=== PATIENT | female | born 1945 | race Caucasian/White ===

== ENCOUNTER 2018-12-14 09:51 | Day surgery (SDC) | payer MEDICARE, OTHER ==
--- NOTE | 2018-12-14 07:46 | History and Physical - [place] ---
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 In 2011 a Medtronic spinal cord stimulator was positioned, over the years the system seemed to help, but eventually the system failed. Multiple attempts at regarding the system functionality were unsuccessful. Computer assessment showed multiple electrodes failure as well as generator failure. She was given the option to replace or removed and she opted to remove and replace with a [employer] WaveWrNovint technology which represents greater numbers of electrodes, different generator, and more programmability. PAST MEDICAL HISTORY: Chronic pulmonary disease. MEDICATIONS ON ADMISSION: List to be provided. ALLERGIES: CODEINE. FAMILY/PSYCHOSOCIAL HISTORY: Social history - Noncontributory. Family history - Noncontributory. SYSTEMS REVIEW: The patient is appropriate in no acute distress. The remainder of the systems review is positive for breathing difficulties, reflux, and degenerative arthritis. PHYSICAL EXAMINATION: Height is 5'3", weight is 190. No vital signs. HEENT: Within normal limits. LUNGS: Clear. HEART: Rapid and regular. ABDOMEN: Nontender. MUSCULOSKELETAL: Examination of the musculoskeletal system shows the incisional line for the leads approximating T12-L1. Generator noted at the right posterior3 gluteal margins. All of the incisions are intact. Underlying pain pattern is radicular into both lower extremities. Somewhat more prominent to the right across the frontal and back surface with motor and sensory abnormalities. NEUROLOGIC: Cranial nerves are intact. IMPRESSION: 1. POST LUMBAR LAMINECTOMY SYNDROME, ICD-10 CODE M96.1 WITH RADICULOPATHY, ICD- 10 CODE M54.16 AND M54.17. 2. IMPLANTED SPINAL CORD STIMULATOR AND INTERNAL GENERATOR NONFUNCTIONAL. PLAN: The patient is here for removal of the current system and replace with a new system. The procedure will be considered outpatient, although an overnight stay will be evaluated. JOB NUMBER: [id number] [facility]
[~2018-12-14 09:51] MED LIST: ACETAMINOPHEN 1,000 MG/100 ML BTL IVPB ONE; FAMOTIDINE 20MG TABLET PO ONE; METOCLOPRAMIDE 10 MG TABLET PO ONE; VANCOMYCIN HCL 1,000 MG in DEXTROSE 5 % IN WATER 250 ML IVPB ONE
[2018-12-14] MEDS ORDERED: MIDAZOLAM HCL 2MG/2ML VIAL IV ONE (09:52)
[2018-12-14] MEDS ORDERED: LIDOCAINE 2% MDV (20MG/ML) 20ML VIAL IV ONE (09:52)
[2018-12-14] MEDS ORDERED: FENTANYL PF 100MCG/2ML VIAL IV ONE (09:52)
[2018-12-14] MEDS ORDERED: ONDANSETRON HCL IV 4 MG/2 ML VIAL IVP ONE (09:52)
[2018-12-14] MEDS ORDERED: PROPOFOL 10 MG/ML VIAL IV ONE (09:52)
[2018-12-14] MEDS ORDERED: MECLIZINE 25 MG TABLET PO ONE (10:12)
[2018-12-14] MEDS ORDERED: RINGERS SOLUTION,LACTATED 1,000 ML IV ONE ×2 (10:25→13:40)
[2018-12-14] MEDS ORDERED: CEFAZOLIN 0.5 G in 0.9 % SODIUM CHLORIDE 1000ML 500 ML IVP ONE (13:04)
[2018-12-14] MEDS ORDERED: LIDOCAINE 1% W/EPI 1:100,000 MDV 20 ML VIAL SQ ONE (13:04)
[2018-12-14] MEDS ORDERED: BUPIVACAINE 0.5% W/EPI MPF 30 ML VIAL SQ ONE (13:04)
--- NOTE | 2018-12-16 07:10 | Operative Note ---
DATE OF SURGERY: 12/14/2018 PREOPERATIVE DIAGNOSES: 1. Post lumbar laminectomy syndrome, ICD10 code M96.1. 2. Two-lead spinal cord stimulator internal generator Medtronic nonfunctional. OPERATION: 1. Incision and subcutaneous dissection and removal of implanted spinal cord stimulator x2. 2. Incision and subcutaneous dissection and removal of right internal pulse generator for 2 nonfunctional stimulators. 3. Left epidural access T11-12, placement of spinal cord stimulator lead 1 [employer] Infinion 16, 6 electrodes positioned left T7. 4. Fluoroscopic-guided epidural access left T12-L1, placement of spinal cord stimulator lead 2 [employer] Infinion 16, 6 electrodes positioned right T7. 5. Complex programming of lead 1 over 20 minutes followed by complex programming of lead 2 over 20 minutes. 6. Incision and subcutaneous dissection and anchoring of lead 1 and lead 2 to skin with a [employer] locking anchor and nonabsorbable suture. 7. Revision and modification of previous right posterior gluteal margin generator for placement of [employer] programmable rechargeable WaveWriter generator. 8. Tunneling between midline incision for placement into pouch of lead 1 and lead 2 into generator pouch, each lead interfaced to generator. 9. Closure of midline incisions for leads with Vicryl for fascia, lindsey for skin. Closure of right posterior gluteal margin generator pouch using Vicryl for fascia and lindsey for skin, and closure of right midline incision for removal of one of two stimulators, Vicryl for fascia and lindsey for skin. 10. Complex recovery room programming internal generator home use 2 stimulators 20 minutes. ANESTHESIA PROVIDER: Justen Jurado INDICATION: This patient presents with a history of an intractable post laminectomy radiculopathy. Approximately 9-10 years previous, a Medtronic spinal cord stimulator internal generator was placed which over the years, although helped, eventually failed. She presented to the office within the last 4-6 months for evaluation, at which point we noted the system was nonfunctional, battery . She was then given the option to remove or remove and replace with a [employer] rechargeable programmable generator with [id number] systems and 16 electrodes. She opted to removed and replace. PROCEDURE: Intravenous line, vital sign monitoring, IV sedation. Prepped and draped with sterile technique. Patient positioned prone. Sterile prep, sterile technique. Under imaging, the epidural interspace left and right of midline of T11-12 and 12-1 was marked and infiltrated. The 2 incisions for the previous implanted Medtronic leads was infiltrated, incision made, subcutaneous dissection was conducted to the anchor which was removed. Suture removed and the 2 Octipolar 8 electrode leads were removed intact. At the right posterior gluteal margin generator pouch for the Medtronic system, skin infiltrated, incision made, and subcutaneous dissection was conducted to the generator pouch. The generator was then exteriorized and removed along with its lead connections. At T11-12 and 12-1 from the left, skin infiltrated. Then using 2 curved Epimed needles with loss of resistance, the space was accessed. On the left, access atraumatic. No blood, no CSF. At 11-12, spinal cord stimulator lead 1, a [employer] Infinion 16, 6 electrodes positioned left of midline at T7. With the access at 12-1, similar technique, spinal cord stimulator lead 2, [employer] Infinion 16, 6 electrodes positioned right of the midline at T7. Complex programming of lead 1 over 20 minutes followed by complex programming of lead 2 over 20 minutes resulting in complete pattern stimulation across the back and into the legs. Patient indicating we had all the areas of her pain. She was given the option to implant or remove. She opted to implant. The question was repeated with the same response. She was then re-sedated. The skin above and below both needles was infiltrated with local, incision made, and subcutaneous dissection was conducted to supraspinous fascia. The needles were removed and then each lead was anchored to the supraspinous fascia with a [employer] locking anchor. At the previous generator pouch on the right, the generator pouch was modified and revised for a new generator, [employer] programmable rechargeable WaveWriter. A tunneling tool was used to carry the leads into the generator pouch, and then each lead was interfaced to the generator. Antibiotic irrigation and Bovie for hemostasis. The generator was then placed into the pouch, secured to the fascia with nonabsorbable suture. The leads were placed into their own pouch, and then both incisions were closed using Vicryl for fascia and lindsey for skin. A site right of the midline which was used to remove one of the two implanted previous leads was then also closed using Vicryl for fascia and lindsey for skin. Dressing was placed. She was transported to recovery room stable. In the recovery room when fully awake and alert, complex programming was then performed over 20 minutes reestablishing stimulation and pain control to all the appropriate areas. She was instructed along with her on use of the system and prepared for discharge. DISCHARGE INSTRUCTIONS: 1. The sites will remain clean and dry. No showering or bathing in any way that would disrupt dressings. If it happens, contact clinic. 2. Standard medications resumed including the antibiotic Levaquin. She will take 500 mg once a day for 14 days. 3. The office to contact the patient at home to set up a time in 7-10 days for us to evaluate the sites. Until then, she is to keep the dressings in place. No showering or bathing in any way that would disrupt the degrees. Once the office contacts this patient, we will evaluate the sites to remove the lindsey. All other instructions were provided with numbers to contact if problems given. She was then discharged. [facility]
--- NOTE | 2018-12-16 20:37 | RADIOLOGY REPORT ---
EXAM: SPINE, 1 VIEW HISTORY: STATUS POST PAIN STIMULATOR REPLACEMENT. TECHNIQUE: Single frontal view of the thoracic spine. COMPARISON: Spine radiograph 02/24/12. FINDINGS: Apparent interval replacement of lower thoracic stimulator leads, leads extending from the 6 through T9 levels. Surgical lindsey are seen in the projection of the upper lumbar region. Mid and lower thoracic spondylosis with prominent endplate osteophytes. IMPRESSION: THORACIC SPINAL LEADS, ABOVE. FOR ADDITIONAL DETAILS, PLEASE REFER TO THE OPERATIVE REPORT. JOB NUMBER: [id number] [facility]
== END 2018-12-14 14:50 | disposition home or self-care (01) ==
LOC: SUR 09:51
PROVIDERS: ATTEND Pain Medicine Interventional Pain Medicine
DX: M96.1 Postlaminectomy syndrome, not elsewhere classified (principal); Z79.01 Long term (current) use of anticoagulants; I10 Essential (primary) hypertension; E78.00 Pure hypercholesterolemia, unspecified; K21.9 Gastro-esophageal reflux disease without esophagitis; Z95.5 Presence of coronary angioplasty implant and graft
CPT/HCPCS: 63685; 00300; 95972; 72020; J2405; J3370; J3010; C1820; C1883; J0690; J7030; J7060; J7120